=== PATIENT | female | born 1995 | race Caucasian/White ===

== ENCOUNTER 2018-01-19 03:13 | Emergency (ER) | payer OTHER ==
[~2018-01-19] VITALS: Ht 170.2 cm; Wt 57.0 kg
[2018-01-19] MEDS ORDERED: BENADRYL 50MG C50 MG PO (04:51)
[2018-01-19 06:46] VITALS: BP 112/60
== END 2018-01-19 06:45 | disposition home or self-care (01) | DRG 607 ==
LOC: ED 03:13
DX: L50.0 Allergic urticaria (principal)